=== PATIENT | male | born 1940 | race Caucasian/White ===

== ENCOUNTER → 2024-11-02 13:04 | Outpatient (REF) | payer OTHER, SELFPAY | LOC: RAD 13:04 | PROVIDERS: ATTENDING PHYSICIAN Nurse Practitioner Family; FAMILY PHYSICIAN Family Medicine | DX: M54.50 Low back pain, unspecified (principal) | CPT/HCPCS: 72110 ==

== ENCOUNTER → 2025-08-15 07:19 | Outpatient (REF) | payer OTHER, SELFPAY | LOC: RAD 07:19 | PROVIDERS: ATTENDING PHYSICIAN Family Medicine | DX: M25.552 Pain in left hip (principal) | CPT/HCPCS: 73502 ==